=== PATIENT | female | born 1955 | race American Indian/Alaskan Native ===

== ENCOUNTER 2018-03-02 09:36 | Day surgery (SDC) | payer BC ==
[2017-01-21 11:48] VITALS: BMI 36.9
[2018-03-02] MEDS ORDERED: Propofol 10 mg/ml Inj (20 ML) ONE ×2 (11:26→11:45)
[2018-03-02] MEDS ORDERED: Lidocaine Hydrochloride 10 ML INJ ONE (11:26)
[2018-03-02 12:54] VITALS: TEMP 97.3
[2018-03-02 13:20] VITALS: BP 135/81; PULSE 60; RESP 18; O2SAT 97
== END 2018-03-02 13:17 | disposition home or self-care (01) ==
LOC: C.ENDO 09:36
PROVIDERS: ATTEND Internal Medicine Gastroenterology
DX: K21.9 Gastro-esophageal reflux disease without esophagitis (principal); K57.30 Diverticulosis of large intestine without perforation or abscess without bleeding; D12.2 Benign neoplasm of ascending colon; K64.8 Other hemorrhoids; D12.5 Benign neoplasm of sigmoid colon
CPT/HCPCS: 43239; 45384; 88305; J2704